=== PATIENT | male | born 1945 | race Caucasian/White ===

== ENCOUNTER 2016-08-18 20:55 | Emergency (ER) | payer MEDICARE, OTHER ==
[2016-08-18 22:23] LABS: HEMOGLOBIN 12.8 gm/dl (14.0-17.5); RED BLOOD COUNT 4.57 M/UL (4.20-5.50); WHITE BLOOD COUNT 15.8 K/UL (4.5-11.0)
[2016-08-18 22:37] LABS: BUN/CREATININE RATIO 19 (0-10)
[2017-02-21] MEDS ORDERED: FERROUS SULFAT325 MG PO (04:34)
[2017-02-21] MEDS ORDERED: FUROSEMIDE20 MG PO (04:34)
[2017-02-21] MEDS ORDERED: NEXIUM40 MG PO (04:35)
[2017-02-21] MEDS ORDERED: LOPRESSOR 25 MG25 MG PO (04:35)
[2017-02-21] MEDS ORDERED: ASPIRIN CHEWABL81 MG PO (04:35)
[2017-02-21] MEDS ORDERED: DESYREL 50 MG T50 MG PO (04:38)
[2017-02-21] MEDS ORDERED: DAKIN'S473 ML TOP (04:38)
[2017-02-21] MEDS ORDERED: SPIRIVA HANDIH18 MCG INH (04:38)
[2017-02-21] MEDS ORDERED: PROAIR HFA8.5 GM INH (04:39)
[2017-02-21] MEDS ORDERED: OXYCODONE HCL20 MG PO (04:40)
[2017-02-27] MEDS ORDERED: COLACE 100MG C100 MG PO (19:29)
[2017-02-27] MEDS ORDERED: LASIX 40 MG TAB40 MG PO (19:33)
[2017-02-27] MEDS ORDERED: HABITROL 14 MG P1 EA TOP (19:35)
[2017-02-27] MEDS ORDERED: IPRAT-ALBUT 0.5-3 ML INH (19:39)
== END 2016-08-19 05:00 | disposition home or self-care (01) ==
LOC: ER1 20:55
PROVIDERS: Family Medicine
DX: R06.02 Shortness of breath (principal); R50.9 Fever, unspecified; I87.8 Other specified disorders of veins; Z89.511 Acquired absence of right leg below knee; F17.200 Nicotine dependence, unspecified, uncomplicated
CPT/HCPCS: 36415; 71010; 80053; 82550; 82553; 83874; 83880; 84484; 85025; 93005; 96374; 99285; J1940